=== PATIENT | female | born 1985 | race Caucasian/White ===

== ENCOUNTER 2019-12-06 16:51 | Emergency (ER) | payer OTHER, BC, SELFPAY ==
[2019-12-06 17:05] VITALS: BP 131/67; PULSE 76; RESP 16; TEMP 37; O2SAT 100
--- NOTE | 2019-12-06 18:15 | PC.NURSE ---
moon kwan at bedside with isabel velazquez, going over pain and plan for d/c. pt refusing crutches, moon kwan aware, pt states she has walker at him which has been okayed by the edp.
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
--- NOTE | 2019-12-06 19:01 | PC.NURSE ---
Vision Test: Patient usually wears glasses but did not currently have them on her nor did she have contacts in. Patient's left eye was 20/70 (line 3) and her right was 20/40 (line 5).
[2019-12-06 19:13] VITALS: BP 110/75; PULSE 78; RESP 16; O2SAT 100
== END 2019-12-06 19:13 | disposition home or self-care (01) ==
PROVIDERS: Emergency Provider Emergency Medicine; PCP Family Medicine
DX: S05.02XA Injury of conjunctiva and corneal abrasion without foreign body, left eye, initial encounter (principal); W51.XXXA Accidental striking against or bumped into by another person, initial encounter
CPT/HCPCS: 99283; A9270

== ENCOUNTER 2020-01-07 02:05 | Outpatient (CLI) | payer BC, OTHER, SELFPAY ==
[2020-01-07 16:34] LABS: SARS-CoV-2 RNA PCR Negative
== END 2020-01-07 02:06 | disposition home or self-care (01) ==
LOC: ANHCOVIDDT 02:05
PROVIDERS: PCP Family Medicine; Visit Provider Internal Medicine Gastroenterology
DX: Z01.818 Encounter for other preprocedural examination (principal); Z20.828 Contact with and (suspected) exposure to other viral communicable diseases
CPT/HCPCS: 87635; C9803; U0003

== ENCOUNTER 2020-01-08 00:45 | Day surgery (SDC) | payer BC, OTHER, SELFPAY ==
[2019-12-31 11:52] VITALS: BMI 34.5
[2020-01-08 10:31] VITALS: BP 135/79; PULSE 68; RESP 16; TEMP 36.6; O2SAT 100
[2020-01-08] MEDS: LACTATED RINGERS 1,000 ML 150 ML IV CONT (10:40)
--- NOTE | 2020-01-08 10:55 | WPDANESEPPF ---
Anes - Initial Pre Proc Eval Procedure: Operation Date: 01/08/20 12:00 Proposed Procedures p Colonoscopy - Chad Humphreys MD Date/Time: 01/08/20 10:55 Surgeon: Chad Humphreys MD Pre Op Diagnosis: diarrhea Patient Data Age: 34 Gender: F Height: 5 ft 7 in Weight: 97.3 kg Last Vital Signs Temp 97.8 F 01/08/20 10:31 Pulse 68 01/08/20 10:31 Resp 16 01/08/20 10:31 BP 135/79 01/08/20 10:31 Pulse Ox 100 01/08/20 10:31 Allergies Allergy/AdvReac Type Severity Reaction Status Date / Time Penicillins Allergy Mild Rash Verified 01/08/20 10:30 Home Medications Medication Instructions Recorded Confirmed Type multivitamin 1 tablet PO DAILY 03/19/19 12/31/19 History Patient hx anesthesia problems: none Family hx anesthesia problems: none PMFSH Past Medical History Medical History (Updated 01/08/20 @ 10:56 by Archie Diaz MD) GERD with esophagitis Ovarian cyst Family History Family History (Updated 02/23/18 @ 13:32 by DOCTOR UNKNOWN) Father Diabetes mellitus Other Family history of allergic disorder Family history of cardiovascular disease Family history of hypercholesterolemia Hypertension Malignant neoplasm of prostate Social History Social History Smoking status: Never smoker Alcohol intake: current Drinks per week: 10 Substance use: never Substance use type: does not use Living arrangements: with family Gender identity (if verbalized by the patient): Female Spiritual care concerns: No Anes - Eval Final PreProcedure Day of Procedure 01/08/20 10:55 Patient weight: overweight Heart: regular rate and rhythm Lungs: clear to auscultation Airway: Mallampati scale class II Neurological: alert and oriented Last oral intake: >/= 8 hours ASA classification: II Emergent: no Anesthetic plan: proceed Anesthesia type and monitoring: general GIVS and standard monitoring Informed Consent: The patient's anesthetic plan and its attendant risks and benefits were discussed with the patient/family/POA. Questions were solicited and answers provided to the satisfaction of the patient/family/POA.
--- NOTE | 2020-01-08 11:07 | WPDHPUPDATE1 ---
History and Physical Update Update Date/Time: 01/08/20 11:07 History and Physical has been reviewed, including an updated exam of the patient. There are NO changes in the patient's condition. Risks, benefits, and alternatives have been discussed and questions answered. Patient agrees to proceed with procedure.
[2020-01-08 11:28] VITALS: BP 107/54; PULSE 72; RESP 18; O2SAT 100
[2020-01-08 11:38] VITALS: BP 120/62; PULSE 68; RESP 17; O2SAT 100
[2020-01-08 11:48] VITALS: BP 107/79; PULSE 74; RESP 18; O2SAT 100
== END 2020-01-08 12:00 | disposition home or self-care (01) ==
PROVIDERS: PCP Family Medicine; Visit Provider Internal Medicine Gastroenterology
PROC: 0DJD8ZZ Inspection of Lower Intestinal Tract, Via Natural or Artificial Opening Endoscopic (ICD-10-PCS; CPT 45378; principal; 2020-01-08 12:00)
DX: R19.7 Diarrhea, unspecified (principal)
CPT/HCPCS: 45380; 88305; J2704; J7120

== ENCOUNTER → 2020-05-31 01:09 | Outpatient (CLI) | payer BC, OTHER, SELFPAY ==
[2020-05-31 19:49] LABS: SARS-CoV-2 RNA PCR Negative
== END ==
PROVIDERS: PCP Family Medicine; Visit Provider Surgery
DX: Z01.812 Encounter for preprocedural laboratory examination (principal); Z20.822 Contact with and (suspected) exposure to COVID-19
CPT/HCPCS: C9803; U0003; U0005

== ENCOUNTER 2020-06-03 01:10 | Day surgery (SDC) | payer BC, OTHER, SELFPAY ==
[2020-05-30 15:59] VITALS: BMI 35.2
--- NOTE | 2020-06-02 11:09 | WPDANESEPPF ---
Anes - Initial Pre Proc Eval Procedure: Operation Date: 06/03/20 10:00 Proposed Procedures p Laparoscopic Ventral Hernia Repair With Mesh, Davinci Assisted - Panda Sutherland DO Date/Time: 06/02/20 11:09 Surgeon: Panda Sutherland DO Pre Op Diagnosis: Ventral Hernia Patient Data Age: 34 Gender: F Height: 1.7 m Weight: 102.1 kg Allergies Allergy/AdvReac Type Severity Reaction Status Date / Time Penicillins Allergy Mild Rash Verified 05/28/20 13:39 Home Medications Medication Instructions Recorded Confirmed Type multivitamin 1 tablet PO DAILY 03/19/19 05/30/20 History Patient hx anesthesia problems: post op nausea/vomiting Family hx anesthesia problems: none [facility] Past Medical History Medical History (Updated 06/02/20 @ 11:11 by Umberto Soriano DO) BMI 35.0-35.9,adult GERD with esophagitis Ovarian cyst PONV (postoperative nausea and vomiting) Surgical History Surgical History (Updated 06/02/20 @ 11:11 by Umberto Soriano DO) History of delivery x3 History of colonoscopy History of removal of ovarian cyst History of tubal ligation Family History Family History Father Diabetes mellitus Grandparent Kidney disease Other Family history of allergic disorder Family history of cardiovascular disease Family history of hypercholesterolemia Hypertension Malignant neoplasm of prostate Social History Social History Smoking status: Never smoker Alcohol intake: current Drinks per week: 10 Substance use: never Substance use type: does not use Living arrangements: with family Additional occupation/education comments: Teacher Gender identity (if verbalized by the patient): Female Spiritual care concerns: No Anes - Eval Final PreProcedure Day of Procedure 06/02/20 11:09 Patient weight: obese Heart: regular rate and rhythm Lungs: clear to auscultation and normal air movement Airway: Mallampati scale class II Neurological: alert and oriented Last oral intake: >/= 8 hours ASA classification: II Emergent: no Anesthetic plan: proceed Anesthesia type and monitoring: general ETT and standard monitoring Informed Consent: The patient's anesthetic plan and its attendant risks and benefits were discussed with the patient/family/POA. Questions were solicited and answers provided to the satisfaction of the patient/family/POA.
[2020-06-03] VITALS (9 sets, daily range): BP systolic 104–139; BP diastolic 55–80; PULSE 64–89; RESP 12–18; TEMP 36.3–36.7; O2SAT 92–99; BMI 35.6
[2020-06-03] MEDS: ACETAMINOPHEN 500 MG TABLET 1000 MG PO (08:20)
[2020-06-03] MEDS: KETOROLAC 15 MG/ML VIAL (*BKC) IV PUSH (08:20)
[2020-06-03] MEDS: LACTATED RINGERS 1,000 ML 30 ML IV CONT ×2 (08:42→14:03)
[2020-06-03] MEDS: SCOPOLAMINE 1.5 MG PATCH TRANSDERM (08:42)
[2020-06-03] MEDS: FAMOTIDINE 20 MG/2 ML VIAL IV PUSH (08:42)
--- NOTE | 2020-06-03 10:26 | SUR.PREOP ---
1015 PT UPDATED ON SURGERY TIME DELAY. DENIES NEEDS AT THIS TIME.
--- NOTE | 2020-06-03 10:27 | PM.IMHP ---
H&P: HPI History of Present Illness Date/Time: 06/03/20 10:27 Chief Complaint: Ventral hernia Narrative: Massiel Weiss is a 34 year old female who presents with a hernia just superior to her umbilicus. She now presents for surgical repair. She reports no significant changes since last seen in the office. Review of Systems Review of Systems: All systems reviewed & are unremarkable except as noted in HPI and below Constitutional: Constitutional: Denies chills, Denies fever(s), Denies headache(s) and Denies weight loss Eyes: Eyes: Denies change in vision ENT: Denies dizziness, Denies headache(s), Denies neck mass and Denies throat swelling Cardiovascular: Cardiovascular: Denies chest pain, Denies lightheadedness and Denies dyspnea Respiratory: Respiratory: Denies cough, Denies dyspnea and Denies wheezing Gastrointestinal: Gastrointestinal: Denies abdominal pain, Denies change in bowel habits, Denies nausea and Denies vomiting Genitourinary: Genitourinary: Denies hematuria and Denies dysuria Musculoskeletal: Musculoskeletal: Reports as per HPI Integumentary/Breasts: Skin/Breast: Reports as per HPI Neurologic: Denies dizziness and Denies headache(s) Allergic/Immunologic: Allergic/Immunologic: Denies throat swelling and Denies wheezing PMF Past Medical History Medical History BMI 35.0-35.9,adult GERD with esophagitis Ovarian cyst PONV (postoperative nausea and vomiting) Surgical History Surgical History History of delivery x3 History of colonoscopy History of removal of ovarian cyst History of tubal ligation Family History Family History Father Diabetes mellitus Grandparent Kidney disease Other Family history of allergic disorder Family history of cardiovascular disease Family history of hypercholesterolemia Hypertension Malignant neoplasm of prostate Social History Social History Smoking status: Never smoker Alcohol intake: current Drinks per week: 10 Substance use: never Substance use type: does not use Living arrangements: with family Additional occupation/education comments: Teacher Gender identity (if verbalized by the patient): Female Spiritual care concerns: No Meds Home Medications and Allergies Home Medications Medication Instructions Recorded Confirmed Type multivitamin 1 tablet PO DAILY 03/19/19 05/30/20 History Allergies Allergy/AdvReac Type Severity Reaction Status Date / Time Penicillins Allergy Mild Rash Verified 05/28/20 13:39 Vital Signs Vital Signs - 24 hr 06/03/20 08:32 Temperature 36.7 C Pulse Rate 78 Respiratory Rate 14 Blood Pressure 139/80 Pulse Oximetry 99 Exam Const: General: no acute distress and alert Orientation/consciousness: patient oriented x3 HENMT: Head: normocephalic and atraumatic Ears: hearing grossly normal bilaterally General nose exam: Normal nares present Mouth: Yes Normal oral and palatal mucosa present Eyes: Periorbital: periorbital findings normal Sclera: sclerae normal EOM: EOMs intact bilaterally Neck: Neck: normal visual inspection, no lymphadenopathy and trachea midline Chest: Chest palpation & inspection: normal inspection of the chest Resp: Effort & Inspection: normal respiratory effort Auscultation: clear to auscultation bilaterally Cardio: Jugular venous distension: no JVD Rate: regular rate Rhythm: regular rhythm Heart sounds: S1 normal heart sound present and S2 normal heart sound present Peripheral pulses: Peripheral pulses 2+ throughout GI: Inspection: normal to inspection GI Palp: Yes Soft to palpation, No Tenderness to palpation present (GI), No Guarding due to palpation present (GI), Yes Hernia present (1-2 cm hernia just superior
--- NOTE | 2020-06-03 10:29 | WPDHPUPDATE1 ---
History and Physical Update Update Date/Time: 06/03/20 10:29 History and Physical has been reviewed, including an updated exam of the patient. There are NO changes in the patient's condition. Risks, benefits, and alternatives have been discussed and questions answered. Patient agrees to proceed with procedure.
[2020-06-03] MEDS: CLINDAMYCIN 900 MG/D5W 50 ML 900 MG/50 ML PIGGYBACK 50 MG IVPB (11:11)
--- NOTE | 2020-06-03 12:06 | SUR.OPER ---
LEFT INDEX FINGER SILVER RING WITH CLEAR STONE/BAND WITH SMALL CLEAR STONES TAPPED WITH PLASTIC TAPE SEMI CIRCUMFERENTIAL. MAYURI SIGNED IN PRE OP AND DR WOLFF AWARE.
--- NOTE | 2020-06-03 13:20 | SUR.OPER ---
SYMBOTEX LOT [id number], EXP 06-15-2014. ABDOMINAL MESH
--- NOTE | 2020-06-03 13:44 | PM.PROC ---
Procedure Note - Detailed Date of procedure: 06/03/20 Pre-op diagnosis: Ventral Hernia Post-op diagnosis: other (Incarcerated incisional and umbilical hernia) Procedure performed: Laparoscopic incarcerated incisional hernia repair with Symbotex mesh, da Saran assisted Description of procedure: Procedure as well as risks, benefits, and alternatives were discussed with the patient. Written consent was obtained and placed in chart prior to procedure. Patient was brought back to surgical suite. She was placed supine on operating table. Time-out was done to confirm patient and procedure. She was then intubated by the anesthesia department. A bump was placed under left hip, and the bed was flexed slightly to extend the space between her costal margin and iliac crest. Her abdomen was prepped and draped in sterile fashion using chlorhexidine prep. A 5 millimeter incision was made in the left upper quadrant, and a 5 millimeter Optiview trocar was advanced through the abdominal layers under direct visualization. Once inside the abdominal cavity, carbon dioxide insufflation was used to create a pneumoperitoneum. Her abdomen was inspected. An 8 millimeter incision was made in the left lower quadrant, and an 8 millimeter robotic trocar was placed under direct visualization. Another 8 millimeter incision was made in the left lateral abdomen, and an 8 millimeter robotic trocar was placed under direct visualization. Exparel was infiltrated along the lateral abdominal yousif to perform a transversus abdominis plane block bilaterally. The 5 millimeter port was removed, the incision was extended to 12 millimeters, and a 12 millimeter air seal port was placed under direct visualization. A Hunter-Crow cone was also used to place an 0-Vicryl simple interrupted suture at this trocar site. The robotic arms were brought up to the patient's bedside and secured to the ports. The camera and instruments were inserted, and I then moved over to the robotic console and took control of the camera and instruments. After careful thorough inspection of the abdominal cavity, I began my dissection at the hernia. She was found to have an incisional hernia in the lower midline about 5 cm inferior to the umbilicus that was incarcerated with omentum. The omentum was reduced and the hernia defect was measured. The incisional hernia measured 6 cm vertically by 2 cm transversely. She also had a 1 cm umbilical hernia. The preperitoneal fat and hernia sac was dissected free both hernias. This was placed in the Endo-Catch bag to remove at the end of the case. I then measured the hernia size. The hernia measured 6 cm x 2 cm spaced 5 cm below the umbilicus and the umbilical hernia measured 1 cm. The fascia of the incisional hernia was closed using an 0-Stratafix running suture in a vertical fashion. I then also closed the umbilical hernia defect using 0 Ethibond [id number] suture. A total of 2 sutures were placed vertically to approximate this fascia. The total distance from the inferior edge of the incisional hernia to the superior edge of the umbilical hernia measured 12 cm. A 20 cm x 15 cm Symbotex mesh was then placed within the abdominal cavity. This was oriented vertically with the mesh centered on the hernia defects. The mesh was then secured around the perimeter using 2 0 V lock running absorbable suture. The repair was inspected, and one final inspection was made around the abdominal cavity. The robotic instruments were then removed, and the robotic arms were disengaged from the trocars. The ports were then removed under direct visualization, the camera was removed, and the pneumoperitoneum was released. The 0 Vicryl transfascial suture was tied down. The skin of the incisions was then approximated using 4-0 Monocryl subcuticular suture. Exofin glue was then applied on top. The patient was then awakened from anesthesia, extubated, and transferred to recovery. Implants: Symbotex 20
--- NOTE | 2020-06-03 14:22 | SUR.PHASEI ---
[id number] sbar faxed floor notified
[2020-06-03] MEDS: fentaNYL CITRATE INJ (*CRX) 100 MCG/2 ML VIAL 25 MCG IV PUSH ×3 (15:07→15:50)
[2020-06-03] MEDS: oxyCODONE HCL (*CRX) 5 MG TAB IR PO (15:07)
[2020-06-03] MEDS: ONDANSETRON INJ 4 MG/2 ML VIAL IV PUSH (15:07)
== END 2020-06-03 16:45 | disposition home or self-care (01) ==
PROVIDERS: PCP Family Medicine; Visit Provider Surgery
PROC: (CPT 49655; principal; 2020-06-03 10:00)
DX: K43.0 Incisional hernia with obstruction, without gangrene (principal); K42.9 Umbilical hernia without obstruction or gangrene; E66.9 Obesity, unspecified; Z68.35 Body mass index [BMI] 35.0-35.9, adult
CPT/HCPCS: 49655; S2900; 36415; 86850; 86900; 86901; 88300; A9270; C1781; C9290; J0330; J1100; J1200; J1885; J2250; J2370; J2405; J2704; J2710; J3010; J7120

== ENCOUNTER → 2020-06-25 16:39 | Outpatient (CLI) | payer BC, OTHER, SELFPAY ==
--- NOTE | ~2020-06-25 | XR_ITS ---
EXAMINATION: XR chest 2V DATE: 06/25/2020 16:48 INDICATION: Cough. TECHNIQUE: Frontal and lateral views of the chest were obtained. COMPARISON: Chest 2 views 02/12/2016 FINDINGS: The chest demonstrates clear lungs without pneumonia, pleural effusion, or pneumothorax. Th e heart size is normal. IMPRESSION: 1. No acute cardiopulmonary disease. Reviewed, dictated and finalized at location A. ICATION ASSISTANT
== END ==
PROVIDERS: PCP Physician Assistant Medical; Visit Provider Physician Assistant Medical
DX: R05 Cough (principal)
CPT/HCPCS: 71046

== ENCOUNTER 2020-10-31 12:33 | Emergency (ER) | payer BC, OTHER, SELFPAY ==
--- NOTE | ~2020-10-31 | XR_ITS ---
EXAMINATION: XR chest 2V EXAM DATE: 10/31/2020 12:49 INDICATION: Chest pain. TECHNIQUE: Frontal and lateral projections of the chest obtained and reviewed. Comparison is made to prior examination from 06/25/2020. FINDINGS: The lungs are clear. There are no pleural effusions. The cardiomediastinal silhouette is within normal limits. There is no pneumothorax suspected. The bones and soft tissues are unremarkab le. There is no significant interval change. IMPRESSION: No acute cardiopulmonary findings. Reviewed, dictated and finalized at location A.
[2020-10-31 12:38] VITALS: BP 144/83; PULSE 85; RESP 16; TEMP 36.6; O2SAT 99
--- NOTE | 2020-10-31 12:38 | ECG_ITS ---
Measurements Intervals [place] Rate: 77 P: 30 DC: 176 QRS: 13 QRSD: 107 T: 23 QT: 413 QTc: 468 Interpretive Statements SINUS RHYTHM BORDERLINE T WAVE ABNORMALITY- INFERIOR LEADS BASELINE ARTIFACT- I, II, III, AVR, AVL, AVF, V2-V6 BORDERLINE ECG Electronically Signed On 10-31-2020 13:00:16 CDT by Michael Joya D.O.
[2020-10-31 12:43] VITALS: PULSE 74
[2020-10-31 12:54] LABS: Basophils Percent Auto 0.3 % (0.2-1.2); Eosinophils Absolute Auto 0.1 K/mm3 (0-0.3); Eosinophils Percent Auto 0.7 % (0-4.4); Hematocrit 35.4 % (37.0-47.0); Hemoglobin 11.1 g/dL (12.0-15.0); Immature Granulocyte Absolute 0.02 K/mm3 (0.00-0.031); Immature Granulocyte Percent A 0.3 % (0-0.5); Lymphocytes Absolute Auto 2.88 K/mm3 (0.9-3.2); Lymphocytes Percent Auto 42.4 % (18.3-44.2); Mean Corpuscular HGB Conc 31.4 g/dl (32-36); Mean Corpuscular Hemoglobin 25.9 pg (26-34); Mean Corpuscular Volume 82.5 fl (80-100); Monocytes Absolute Auto 0.3 K/mm3 (0.1-0.6); Neutrophils Absolute Auto 3.6 K/mm3 (1.3-6.7); Neutrophils Percent Auto 52.3 % (45.5-73.1); Platelet Count Result 244 k/mm3 (150-375); Red Blood Count 4.29 M/mm3 (4.2-5.4); Red Cell Distribution Width 16.9 % (11.5-14.5); White Blood Count 6.8 K/mm3 (4.5-10.0)
[2020-10-31] MEDS: ASPIRIN 81 MG CHEWABLE TABLET 324 MG PO (13:08)
[2020-10-31 13:10] VITALS: BP 92/76; PULSE 80; RESP 20; O2SAT 98
[2020-10-31 13:14] LABS: Anion Gap 11 mmol/L (8-16); Blood Urea Nitrogen 13 mg/dL (7-17); Carbon Dioxide 21 mmol/L (22-30); Chloride 106 mmol/L (98-107); Estimated CRCL calculation 136 ml/min; Estimated Glomerular Filt Rate > 60; Glucose 102 mg/dL (65-105); Potassium 3.9 mmol/L (3.4-5.0); Sodium 138 mmol/L (137-145)
[2020-10-31 13:18] LABS: Alanine Aminotransferase 17 U/L (4-35); Albumin Level 4.3 g/dL (3.5-5.1); Alkaline Phosphatase 49 U/L (38-126); Aspartate Amino Transferase 25 U/L (14-36); Bilirubin,Total 0.3 mg/dL (0.2-1.3); Lipase 95 U/L (23-300)
[2020-10-31 13:26] LABS: Troponin I < 0.012 ng/mL (0.000-0.034)
[2020-10-31 13:27] LABS: D Dimer 0.28 ug/mL (<0.48)
--- NOTE | 2020-10-31 14:57 | ED.CHESTPAIN ---
HPI - Chest Pain General Chief Complaint: Chest Pain Stated Complaint: CP off and on X1 Week Time Seen by Provider: 10/31/20 12:38 Source: patient Mode of arrival: ambulatory Limitations: no limitations History of Present Illness HPI narrative: 34-year-old female Generally in good health Complains of a constant mild discomfort in the upper chest mostly on the right side that has been present for about a week Nothing makes it better or worse She does not have any other associated symptoms with it such as a cough shortness of breath sweats vomiting etc. No risk factors for coronary disease, no OCPs Treated for GERD at one point previously Related Data Home Medications Medication Instructions Recorded Confirmed multivitamin 1 tablet PO DAILY 03/19/19 07/25/20 omeprazole 10/31/20 Allergies Allergy/AdvReac Type Severity Reaction Status Date / Time Penicillins Allergy Mild Rash Verified 10/31/20 12:41 Review of Systems Review of Systems: All systems reviewed & are unremarkable except as noted in HPI and below Constitutional: Constitutional: Reports no additional constitutional complaints, Denies chills, Denies fever(s) and Denies headache(s) Eyes: Eyes: Reports no additional eye complaints and Denies change in vision ENT: Denies headache(s) and Denies sore throat Cardiovascular: Cardiovascular: Reports chest pain and Denies dyspnea Respiratory: Respiratory: Denies cough and Denies dyspnea Gastrointestinal: Gastrointestinal: Denies abdominal pain, Denies diarrhea and Denies vomiting Genitourinary: Genitourinary: Denies urinary frequency and Denies dysuria Musculoskeletal: Musculoskeletal: Denies deformity, Denies arthralgias, Denies joint swelling and Denies numbness Integumentary/Breasts: Skin/Breast: Denies rash and Denies wounds Neurologic: Denies headache(s), Denies focal weakness and Denies numbness Psychiatric: Psychiatric: Reports no additional psychiatric complaints Endocrine: Endocrine: Reports no additional endocrine complaints Hematologic/Lymphatic: Hematologic/Lymphatic: Reports no additional hematologic/lymphatic complaints Allergic/Immunologic: Allergic/Immunologic: Reports no additional allergic/immunologic complaints PMFSH Past Medical History Medical History BMI 35.0-35.9,adult GERD with esophagitis Ovarian cyst PONV (postoperative nausea and vomiting) Surgical History Surgical History History of delivery x3 History of colonoscopy History of incisional hernia repair Laparoscopic incarcerated incisional hernia repair with Symbotex mesh, da Saran assisted History of removal of ovarian cyst History of tubal ligation Family History Family History Father Diabetes mellitus Grandparent Kidney disease Other Family history of allergic disorder Family history of cardiovascular disease Family history of hypercholesterolemia Hypertension Malignant neoplasm of prostate Social History Social History Smoking status: Never smoker Alcohol intake: current Drinks per week: 10 Substance use: never Substance use type: does not use Additional occupation/education comments: Teacher Gender identity (if verbalized by the patient): Female Spiritual care concerns: No Exam Const: General: cooperative and no acute distress Orientation/consciousness: patient oriented x3 (alert) HENMT: Head: normal to inspection, normocephalic and atraumatic Ears: external ears normal General nose exam: no epistaxis Eyes: Conjunctivae: conjunctivae normal EOM: EOMs intact bilaterally Neck: Neck: normal visual inspection, supple and no JVD Chest: Chest palpation & inspection: normal inspection of the chest and no tenderness Resp: Effort & Inspect
[2020-10-31 15:26] LABS: INR 1.1; Prothrombin Time 13.7 Seconds (11.1-14.7)
[2020-10-31 15:28] LABS: Partial Thromboplastin Time 33.2 SECONDS (22.3-36.8)
[2020-10-31 15:32] VITALS: BP 123/80; PULSE 66; RESP 18; O2SAT 98
[2020-10-31 15:54] LABS: Troponin I < 0.012 ng/mL (0.000-0.034)
[2020-10-31 16:39] VITALS: BP 125/76; PULSE 72; RESP 18; O2SAT 99
[2020-10-31 17:29] VITALS: BP 122/90; PULSE 72; RESP 18; O2SAT 99
== END 2020-10-31 17:30 | disposition home or self-care (01) ==
PROVIDERS: Emergency Medicine; Emergency Provider Emergency Medicine; PCP Family Medicine
DX: R07.9 Chest pain, unspecified (principal); K21.00 Gastro-esophageal reflux disease with esophagitis, without bleeding; R94.31 Abnormal electrocardiogram [ECG] [EKG]
CPT/HCPCS: 36415; 71046; 80048; 80076; 83690; 84484; 85025; 85380; 85610; 85730; 93005; 99284; A9270

== ENCOUNTER 2021-06-12 06:19 | Emergency (ER) | payer OTHER, SELFPAY ==
--- NOTE | ~2021-06-12 | CT_ITS ---
EXAMINATION: CT soft tissue neck w con DATE: 06/12/2021 08:41 INDICATION: Right jaw swelling. Neck swelling. TECHNIQUE: Computed tomography (CT) of the neck was performed with 75 mL Omnipaque-350 intravenous co ntrast. Automated exposure control and iterative reconstruction technique were employed. The dose-markie gth product was 488.62 mGy-cm. COMPARISON: None FINDINGS: There is mild right submandibular and right high internal jugular chain lymphadenopathy, li ramu reactive. The cervical carotid arteries are normal. There is mild mucosal thickening in the para nasal sinuses. The teeth are unremarkable. IMPRESSION: 1. Mild right submandibular and right high internal jugular chain lymphadenopathy, likely reactive. Reviewed, dictated and finalized at location A. RGROUND MINE SUPERINTENDENT IMPRESSION: 1. Mild right submandibular and right high internal jugular chain lymphadenopat hy, likely reactive.
--- NOTE | ~2021-06-12 | XR_ITS ---
EXAMINATION: XR chest 1V portable DATE: 06/12/2021 07:36 INDICATION: Fever. TECHNIQUE: A single frontal view of the chest was obtained. COMPARISON: Chest 2 views 10/31/2020 FINDINGS: The chest demonstrates clear lungs without pneumonia, pleural effusion, or pneumothorax. Th e heart size is normal. IMPRESSION: 1. No acute cardiopulmonary disease. Reviewed, dictated and finalized at location A. REPAIRER
[2021-06-12 06:24] VITALS: BP 147/94; PULSE 111; RESP 16; TEMP 37.4; O2SAT 100
[2021-06-12 06:58] LABS: Basophils Percent Auto 0.3 % (0.2-1.2); Eosinophils Percent Auto 0.4 % (0-4.4); Hematocrit 39.7 % (37.0-47.0); Hemoglobin 12.6 g/dL (12.0-15.0); Immature Granulocyte Absolute 0.02 K/mm3 (0.00-0.031); Immature Granulocyte Percent A 0.3 % (0-0.5); Lymphocytes Absolute Auto 1.61 K/mm3 (0.9-3.2); Lymphocytes Percent Auto 22.7 % (18.3-44.2); Mean Corpuscular HGB Conc 31.7 g/dl (32-36); Mean Corpuscular Volume 81.9 fl (80-100); Mean Platelet Volume 9.8 fl (7.4-10.4); Monocytes Absolute Auto 0.5 K/mm3 (0.1-0.6); Monocytes Percent Auto 7.2 % (2.6-8.5); Neutrophils Absolute Auto 4.9 K/mm3 (1.3-6.7); Neutrophils Percent Auto 69.1 % (45.5-73.1); Platelet Count Result 242 k/mm3 (150-375); Red Blood Count 4.85 M/mm3 (4.2-5.4); Red Cell Distribution Width 15.6 % (11.5-14.5); White Blood Count 7.1 K/mm3 (4.5-10.0)
[2021-06-12] MEDS: MORPHINE SULFATE (*CRX) 4 MG/ML INJ IV PUSH (07:00)
[2021-06-12] MEDS: SODIUM CHLORIDE 0.9% IV 1,000 ML 999 ML IV CONT (07:00)
[2021-06-12 07:10] LABS: Lactic Acid Reflex 1.4 mmol/L (0.7-2.1)
[2021-06-12 07:17] LABS: Alanine Aminotransferase 25 U/L (4-35); Albumin Level 4.6 g/dL (3.5-5.1); Alkaline Phosphatase 65 U/L (38-126); Anion Gap 8 mmol/L (8-16); Aspartate Amino Transferase 23 U/L (14-36); Bilirubin,Total 0.3 mg/dL (0.2-1.3); Blood Urea Nitrogen 13 mg/dL (7-17); Calcium 8.6 mg/dL (8.4-10.2); Carbon Dioxide 24 mmol/L (22-30); Chloride 102 mmol/L (98-107); Estimated CRCL calculation 121 ml/min; Estimated Glomerular Filt Rate > 60; Glucose 168 mg/dL (65-110); Potassium 4.2 mmol/L (3.4-5.0); Sodium 134 mmol/L (137-145)
--- NOTE | 2021-06-12 07:34 | ED.DENTAL ---
HPI - Dental/Oral General Chief complaint: Dental/Oral Stated complaint: infected wisdom tooth Time Seen by Provider: 06/12/21 07:00 Source: patient and RN notes reviewed Mode of arrival: ambulatory Limitations: no limitations History of Present Illness HPI Narrative: This is a 34 year old female who presents for evaluation right gum and jaw swelling. Patient reports she woke up with right tooth and jaw pain on Tuesday morning. Her jaw also felt swollen at that time so she was evaluated by her dentist Tuesday afternoon. She was told she had an infection and she was started on clindamycin 3 times a day. She states she had a fever yesterday of 102 F. She took Tylenol sometime between midnight and 2 am this morning. She reports she was told to come to ER if she developed worsening pain or fever. She was having right jaw and neck swelling with pain this morning, but it has resolved after she was given morphine in ER. She reports mild cough with breathing. She does not have nausea, vomiting or diarrhea. She also denies chest pain or abdominal pain. Related Data Home Medications Medication Instructions Recorded Confirmed clindamycin HCl 300 mg PO TID 06/12/21 06/12/21 Allergies Allergy/AdvReac Type Severity Reaction Status Date / Time Penicillins Allergy Mild Rash Verified 06/12/21 07:45 Review of Systems Review of Systems: All systems reviewed & are unremarkable except as noted in HPI and below PMFSH Past Medical History Medical History BMI 35.0-35.9,adult GERD with esophagitis Ovarian cyst PONV (postoperative nausea and vomiting) Surgical History Surgical History History of delivery x3 History of colonoscopy History of incisional hernia repair Laparoscopic incarcerated incisional hernia repair with Symbotex mesh, da Saran assisted History of removal of ovarian cyst History of tubal ligation Family History Family History Father Diabetes mellitus Grandparent Kidney disease Other Family history of allergic disorder Family history of cardiovascular disease Family history of hypercholesterolemia Hypertension Malignant neoplasm of prostate Social History Social History Alcohol intake: current Drinks per week: 10 Substance use: never Substance use type: does not use Additional occupation/education comments: Teacher Gender identity (if verbalized by the patient): Female Spiritual care concerns: No Exam Const: General: no acute distress and alert Orientation/consciousness: patient oriented x3 HENMT: Head: normocephalic and atraumatic Face and sinus: normal facial exam, sinuses nontender and face symmetric Mouth: Yes lip normal, Yes tongue normal, Yes moist mucous membranes, No trismus and No restricted motion Teeth and gingiva: fair dentition and other (right gum swelling, no fluctuance, floor of mouth is soft) Throat: posterior oropharynx normal, tonsils normal and uvula midline Eyes: Pupils: Equal, round and reactive pupils present EOM: EOMs intact bilaterally Neck: Neck: lymphadenopathy (right submandibular) Resp: Effort & Inspection: normal respiratory effort and no retractions Auscultation: clear to auscultation bilaterally Cardio: Rate: regular rate Rhythm: regular rhythm Heart sounds: no murmurs GI: GI Palp: Yes Soft to palpation, No Tenderness to palpation present (GI) and No Guarding due to palpation present (GI) Auscultation: normal bowel sounds Neuro: General: patient oriented x3, moves all extremities and CN's II-XI intact bilaterally Psych: Mental Status: mental status grossly normal Affect: normal affect Course Reevaluation(s) Reevaluation #1: I have discussed with patient her pain and swelling is due to lymph no
[2021-06-12 07:42] LABS: Add Urine Microscopic? NO; Appearance Urine Clear (Clear); Bilirubin Urine Negative (Negative); Blood Urine Negative (Negative); Color Urine Yellow (Yellow); Glucose Urine UA Negative (Negative); Ketones Urine Negative (Negative); Leukocyte Esterase Ur Negative LEU/UL (Negative); Nitrate Urine Negative (Negative); Protein Urine Negative (Negative); Specific Grav Ur 1.021 (1.001-1.035); Urobilinogen Urine Negative mg/dL (<2.0)
[2021-06-12] MEDS: CLINDAMYCIN 900 MG/D5W 50 ML 900 MG/50 ML PIGGYBACK 50 MG IVPB (07:48)
[2021-06-12 07:59] LABS: Pregnancy On Board Control Positive; Urine Pregnancy Test Negative
[2021-06-12 08:56] VITALS: BP 119/68; PULSE 90; RESP 18; TEMP 37.1; O2SAT 98
== END 2021-06-12 09:45 | disposition home or self-care (01) ==
PROVIDERS: Emergency Medicine; Emergency Provider General Practice; PCP Family Medicine
DX: K04.7 Periapical abscess without sinus (principal); R59.9 Enlarged lymph nodes, unspecified; K21.00 Gastro-esophageal reflux disease with esophagitis, without bleeding
CPT/HCPCS: 36415; 70491; 71045; 80053; 81003; 81025; 83605; 85025; 96365; 96367; 96375; 99284; J0131; J2270; J7030; Q9967

== ENCOUNTER 2023-03-28 07:00 | Outpatient (NON) | payer OTHER, SELFPAY | END 2023-03-28 07:01 | disposition home or self-care (01) | PROVIDERS: PCP Family Medicine; Visit Provider Internal Medicine Gastroenterology | DX: N92.1 Excessive and frequent menstruation with irregular cycle (principal) | CPT/HCPCS: 88305 ==

== ENCOUNTER 2023-03-28 09:31 | Day surgery (SDC) | payer OTHER, SELFPAY ==
[2023-03-23 15:28] VITALS: BMI 38.8
[2023-03-25 13:42] VITALS: BMI 37.6
[2023-03-28 11:10] VITALS: BP 137/87; PULSE 90; RESP 20; TEMP 37.3; O2SAT 100
[2023-03-28] MEDS: LACTATED RINGERS 1,000 ML 30 ML IV CONT (11:23)
[2023-03-28] MEDS: ACETAMINOPHEN 500 MG TABLET 1000 MG PO (11:26)
--- NOTE | 2023-03-28 11:34 | PM.IMHP ---
H&P: HPI History of Present Illness Date/Time: 03/28/23 11:34 Chief Complaint: Heavy bleeding Narrative: 37 y/o who has heavy menses with full flow lasting 7-10 days each. Ultrasound shows a likely endometrial mass measuring 1.7 cm in greatest dimension. Review of Systems Review of Systems: All systems reviewed & are unremarkable except as noted in HPI and below PMFSH Past Medical History Medical History BMI 35.0-35.9,adult GERD with esophagitis Ovarian cyst PONV (postoperative nausea and vomiting) Surgical History Surgical History History of delivery x3 History of colonoscopy History of incisional hernia repair Laparoscopic incarcerated incisional hernia repair with Symbotex mesh, da Saran assisted History of removal of ovarian cyst History of tubal ligation Family History Family History Father Diabetes mellitus Grandparent Kidney disease Other Family history of allergic disorder Family history of cardiovascular disease Family history of hypercholesterolemia Hypertension Malignant neoplasm of prostate Social History Social History Smoking status: Never smoker Second hand tobacco smoke exposure: No Alcohol intake: current Drinks per week: 5 Substance use: never Substance use type: does not use Lack of Transportation: No Lack of Food: Never True Current Housing: I Have Housing Concerned About Future Housing: No Difficulty Paying Gas/Electric Bills: No Difficulty Paying for Meds: No Currently Unemployed: No Education: Master's Degree or Higher Difficulty w/ Childcare or Family Care: No Living arrangements: with family Occupation/Education: occupation Additional occupation/education comments: Teacher Gender identity (if verbalized by the patient): Female Spiritual care concerns: No Meds Home Medications and Allergies Home Medications Medication Instructions Recorded Confirmed Type ferrous sulfate 325 mg (65 mg 325 mg PO DAILY #30 tabs 09/21/22 03/25/23 Rx iron) tablet Allergies Allergy/AdvReac Type Severity Reaction Status Date / Time Penicillins Allergy Unknown Rash Verified 03/28/23 11:19 Vital Signs Vital Signs - 24 hr 03/28/23 11:10 Temperature 37.3 C Pulse Rate 90 Respiratory Rate 20 Blood Pressure 137/87 Pulse Oximetry 100 Oxygen Delivery Room Air Exam Const: Orientation/consciousness: patient oriented x3 Other: Well-developed, well-nourished female in no acute distress. Neck: Thyroid: thyroid normal Lymphatic: no lymphadenopathy noted (in neck, axilla or inguinal nodes) Resp: Effort & Inspection: normal respiratory effort Auscultation: clear to auscultation bilaterally Cardio: Rate: regular rate Rhythm: regular rhythm Heart sounds: S1 normal heart sound present and S2 normal heart sound present GI: Other: ABD: Soft, nontender, nondistended. No guarding or rebound tenderness. No hepatosplenomegaly. : General: Yes no CVA tenderness Other: External genitalia: normal female hair distribution, without lesion. Urethral meatus: no lesion, non prolapsed. Bladder: no mass, nontender Vagina: well-estrogenized, without lesion or discharge. No cystocele or rectocele. Cervix: no lesion or discharge. Uterus: small, anteverted, freely mobile, nontender Adnexa: no mass or tenderness. Anus/perineum: no lesions, nontender Back/Spine/Pelvis: Back: no CVA tenderness Skin: General skin exam: normal color and no rashes or lesions noted Neuro: General: patient oriented x3 Extrem: Other: Extremities: nontender with no edema Psych: Mental Status: mental status grossly normal Affect: normal affect Assessment and Plan Assessment and plan (1) [place]
--- NOTE | 2023-03-28 11:57 | WPDHPUPDATE1 ---
History and Physical Update Update Date/Time: 03/28/23 11:57 History and Physical has been reviewed, including an updated exam of the patient. There are NO changes in the patient's condition. Risks, benefits, and alternatives have been discussed and questions answered. Patient agrees to proceed with procedure.
--- NOTE | 2023-03-28 12:04 | WPDANESEPPF ---
Anes - Initial Pre Proc Eval Procedure: Operation Date: 03/28/23 12:00 Proposed Procedures p Hysteroscopy with Dilation and Curettage, Polypectomy - Anshu Cooper MD Date/Time: 03/28/23 12:04 Surgeon: Anshu Cooper MD Pre Op Diagnosis: Thicken Endometrial Lining, Irregular Heavy Menses Patient Data Age: 37 Gender: F Height: 1.7 m Weight: 111.6 kg Last Vital Signs Temp 37.3 C 03/28/23 11:10 Pulse 90 03/28/23 11:10 Resp 20 03/28/23 11:10 BP 137/87 03/28/23 11:10 Pulse Ox 100 03/28/23 11:10 O2 Del Method Room Air 03/28/23 11:10 Allergies Allergy/AdvReac Type Severity Reaction Status Date / Time Penicillins Allergy Unknown Rash Verified 03/28/23 11:19 Home Medications Medication Instructions Recorded Confirmed Type ferrous sulfate 325 mg (65 mg 325 mg PO DAILY #30 tabs 09/21/22 03/25/23 Rx iron) tablet Patient hx anesthesia problems: none Family hx anesthesia problems: none Results Review: All pre-operative results and documents have been reviewed as part of the pre-operative evaluation. [facility] Past Medical History Medical History BMI 35.0-35.9,adult GERD with esophagitis Ovarian cyst PONV (postoperative nausea and vomiting) Surgical History Surgical History History of delivery x3 History of colonoscopy History of incisional hernia repair Laparoscopic incarcerated incisional hernia repair with Symbotex mesh, da Saran assisted History of removal of ovarian cyst History of tubal ligation Family History Family History Father Diabetes mellitus Grandparent Kidney disease Other Family history of allergic disorder Family history of cardiovascular disease Family history of hypercholesterolemia Hypertension Malignant neoplasm of prostate Social History Social History Smoking status: Never smoker Second hand tobacco smoke exposure: No Alcohol intake: current Drinks per week: 5 Substance use: never Substance use type: does not use Lack of Transportation: No Lack of Food: Never True Current Housing: I Have Housing Concerned About Future Housing: No Difficulty Paying Gas/Electric Bills: No Difficulty Paying for Meds: No Currently Unemployed: No Education: Master's Degree or Higher Difficulty w/ Childcare or Family Care: No Living arrangements: with family Occupation/Education: occupation Additional occupation/education comments: Teacher Gender identity (if verbalized by the patient): Female Spiritual care concerns: No Anes - Eval Final PreProcedure Day of Procedure 03/28/23 12:04 Patient weight: obese Heart: regular rate and rhythm Lungs: clear to auscultation Airway: Mallampati scale class II Neurological: alert and oriented Last oral intake: >/= 8 hours ASA classification: II Emergent: no Anesthetic plan: proceed Anesthesia type and monitoring: general GIVS and standard monitoring Results Review: All pre-operative results and documents have been reviewed as part of the pre-operative evaluation. Informed Consent: The patient's anesthetic plan and its attendant risks and benefits were discussed with the patient/family/POA. Questions were solicited and answers provided to the satisfaction of the patient/family/POA.
[2023-03-28] MEDS: LIDOCAINE HCL 1% LOCAL INJ 20 ML VIAL 10 ML INFILTRATE (12:28)
--- NOTE | 2023-03-28 12:37 | W.PM.PROC2 ---
Procedure Note - Detailed Date of Procedure 03/28/23 Pre-op Diagnosis Menometrorrhagia Abnormal pelvic ultrasound Post-op Diagnosis Same Procedure Performed Hysterosopy Dilation and sharp curettage Endometrial polypectomy Surgeon Anshu Cooper MD Anesthesia MAC and Local (1% lidocaine) Findings Thick endometrium with suggestion of a polyp Description of Procedure The patient was taken to the operating room where she was prepared and draped in the usual sterile fashion in the dorsal lithotomy position. The bladder was drained with a red rubber catheter. A sterile speculum was placed into the vagina. The anterior lip of the cervix was grasped with single-tooth tenaculum. Ten mL of 1% lidocaine was administered in a paracervical block. The cervix was then gently dilated using Hegar dilators until an 8 mm dilator could be passed. Hysteroscopy was performed using sterile saline as a distention medium. Findings are as noted above. Sharp curettage was then performed, and endometrial curettings were collected on a Telfa pad and passed off to be sent to pathology. Hemostasis was excellent. Sponge, lap, needle and instrument counts were correct. The patient was awakened and taken to the recovery room in stable condition. I was present and scrubbed through the entire procedure. Estimated Blood Loss 5 Drains No Packing No Pathology Yes (Endometrial curettings) Complications None Condition Stable Disposition PACU
[2023-03-28 12:38] VITALS: BP 136/94; PULSE 72; RESP 16; O2SAT 100
--- NOTE | 2023-03-28 12:47 | WPDANESPN ---
Anes - Prog Note Post-Op Date/Time: 03/28/23 12:47 Cardiovascular status: normal Respiratory status: normal Airway patency: baseline Mental status: baseline Post-Op hydration status: normal Vital Signs: Last Vital Signs Temp 37.3 C 03/28/23 11:10 Pulse 72 03/28/23 12:38 Resp 16 03/28/23 12:38 BP 136/94 H 03/28/23 12:38 Pulse Ox 100 03/28/23 12:38 O2 Del Method Room Air 03/28/23 12:38 Pain Score (VAS): 0/10 I/O: Intake & Output 03/27/23 03/28/23 03/28/23 23:59 07:59 15:59 Intake Total 600 Output Total 50 Balance 550 Patient Feedback: Patient satisfied with anesthetic care.
[2023-03-28 12:48] VITALS: BP 133/85; PULSE 74; RESP 16; O2SAT 100
[2023-03-28 12:58] VITALS: BP 142/88; PULSE 62; RESP 15; O2SAT 100
[2023-03-28 13:08] VITALS: PULSE 62; RESP 15; O2SAT 100
[2023-03-28] MEDS: SCOPOLAMINE 1.5 MG PATCH 1 MG TRANSDERM (13:22)
== END 2023-03-28 13:39 | disposition home or self-care (01) ==
PROVIDERS: PCP Family Medicine; Visit Provider Obstetrics & Gynecology
PROC: 0U5B8ZZ Destruction of Endometrium, Via Natural or Artificial Opening Endoscopic (ICD-10-PCS; CPT 58563; principal; 2023-03-28 12:00)
DX: N92.1 Excessive and frequent menstruation with irregular cycle (principal); R93.5 Abnormal findings on diagnostic imaging of other abdominal regions, including retroperitoneum
CPT/HCPCS: 58558

== ENCOUNTER 2023-10-28 09:18 | Emergency (ER) | payer OTHER, SELFPAY ==
--- NOTE | 2023-10-28 09:25 | ED.URI ---
HPI - URI/Sore Throat General Chief Complaint: Upper Respiratory Infection Stated Complaint: strep test Time Seen by Provider: 10/28/23 09:30 Source: patient, RN notes reviewed and old records reviewed Mode of arrival: ambulatory Limitations: no limitations History of Present Illness HPI Narrative: 37-year-old female presents to the [facility] with complaints of a sore throat/ headache that started Tuesday, 4 days, Worse today. No treatment [place] Patient states she just wants to be tested for strep, making sure she does not need an antibiotic because she is going out of town Related Data Home Medications Medication Instructions Recorded Confirmed No Home Medications 04/15/23 10/28/23 Allergies Allergy/AdvReac Type Severity Reaction Status Date / Time Penicillins AdvReac Mild Rash Verified 10/28/23 09:24 Review of Systems Review of Systems: All systems reviewed & are unremarkable except as noted in HPI and below Constitutional: Constitutional: Reports no additional constitutional complaints Eyes: Eyes: Reports no additional eye complaints ENT: Reports as per HPI and Reports sore throat Cardiovascular: Cardiovascular: Reports no additional cardiovascular complaints, Denies chest pain and Denies dyspnea Respiratory: Respiratory: Reports no additional respiratory complaints, Denies chest congestion, Denies cough and Denies dyspnea Gastrointestinal: Gastrointestinal: Reports no additional gastrointestinal complaints, Denies abdominal pain, Denies nausea and Denies vomiting Musculoskeletal: Musculoskeletal: Reports no additional musculoskeletal complaints Integumentary/Breasts: Skin/Breast: Reports system reviewed and no additional complaints, except as docu Neurologic: Reports system reviewed and no additional complaints, except as documented Psychiatric: Psychiatric: Reports no additional psychiatric complaints Allergic/Immunologic: Allergic/Immunologic: Reports no additional allergic/immunologic complaints [facility] Past Medical History Medical History BMI 35.0-35.9,adult GERD with esophagitis Ovarian cyst PONV (postoperative nausea and vomiting) Surgical History Surgical History History of delivery x3 History of colonoscopy History of hysteroscopy History of incisional hernia repair Laparoscopic incarcerated incisional hernia repair with Symbotex mesh, da Saran assisted History of removal of ovarian cyst History of tubal ligation Family History Family History Father Diabetes mellitus Grandparent Kidney disease Other Family history of allergic disorder Family history of cardiovascular disease Family history of hypercholesterolemia Hypertension Malignant neoplasm of prostate Social History Social History Smoking status: Never smoker Second hand tobacco smoke exposure: No Alcohol intake: current Drinks per week: 5 Substance use: never Substance use type: does not use Lack of Transportation: No Lack of Food: Never True Current Housing: I Have Housing Concerned About Future Housing: No Difficulty Paying Gas/Electric Bills: No Difficulty Paying for Meds: No Currently Unemployed: No Education: Master's Degree or Higher Difficulty w/ Childcare or Family Care: No Living arrangements: with family Occupation/Education: occupation Additional occupation/education comments: Teacher Gender identity (if verbalized by the patient): Female Spiritual care concerns: No Comments At the time of my signature, I reviewed and agree with the nursing past medical, surgical, social, and family history. There is no relevant family history pertinent to the patient complaint. Exam Const: General: cooperative, healthy appearing, comfortable, no
[2023-10-28 09:32] VITALS: BP 122/85; PULSE 74; RESP 16; TEMP 36.4; O2SAT 99
[2023-10-28 09:39] LABS: EDSTREPNEGPOS1 Presumptive Negative
== END 2023-10-28 09:38 | disposition home or self-care (01) ==
PROVIDERS: Emergency Provider Nurse Practitioner; PCP Family Medicine
DX: J02.9 Acute pharyngitis, unspecified (principal); K21.00 Gastro-esophageal reflux disease with esophagitis, without bleeding
CPT/HCPCS: 87081; 87880; 99213; G0463

== ENCOUNTER 2025-03-13 01:28 | Day surgery (SDC) | payer OTHER, SELFPAY ==
[2025-03-04 15:17] VITALS: BMI 37.6
--- NOTE | 2025-03-04 15:25 | PC.NURSE ---
[facility] has started construction of its new state of the art ER which will open Spring 2026. With this, we anticipate parking may be a challenge for some our surgical patients and families. Parking spaces are limited but are available for all Surgical, obstetrics, and ER patients sharing this lot. If you arrive and find you are having a hard time finding a parking space, please note that we understand the challenges, please drive around the hospital and park near Hospital Entrance 1. When you enter this entrance, you can ask a volunteer to direct or take you back to the surgical waiting area to check in. We appreciate everyone?s understanding of these expected challenges while we build for your future. Report to the Outpatient Waiting Room, entrance under the green pavilion located off [address], at time _115pm_ on date _[id number]_. Planned Procedure Time: _315pm_.? Time changes happen often and if your time is changed the preop area will call you the afternoon before. - You and your visitor will be asked to self-screen and do not enter if you have any COVID symptoms. Please call surgeon if you need to reschedule. - A mask is optional within the hospital at this time. Patients may have clear liquids (water, carbonated beverages, clear teas, apple juice) until 3 hours prior to surgery with a maximum of 20 ounces. - No food from midnight until time of surgery and no smoking, or chewing tobacco (or any form of nicotine). No chewing gum, candy or mints. Take only the following medications with a SIP of water on the morning of surgery: __None DO NOT STOP ANY OF YOUR OTHER PRESCRIPTION MEDICATIONS PRIOR TO SURGERY EXCEPT THE FOLLOWING Hold all vitamins and supplements for 3 days per anesthesiologist. Medications to discontinue per physician Date to take last dose Please no make-up, nail greek, hairspray, perfume, deodorant, or body powder the day of surgery.? No jewelry (including any body piercings) or valuables the day of surgery, leave them at home.? Please take a shower or bath the night before, or the morning of, surgery with an antibacterial soap.? Wear comfortable, loose fitting clothing.? - Jewelry must be removed prior to entering the operating room.? Rings and piercings that are not removed may be cut off. - The hospital will not accept responsibility for valuables.? - Please leave all valuables, including medications, at home the day of surgery. If you are going home after surgery, a licensed tractor driver teamster must drive you home.? - NO public transportation without another adult if you receive anesthesia. - We recommend that an adult stay with you for 24 hours following discharge. - We also recommend that you do not drive, make important decision, drink alcoholic beverages, or take any drugs that were not prescribed by your health care provider for at least 24 hours after your discharge time. Follow any additional instructions given to you from your surgeon. Telephone instructions given to _Makaylamari__and asked if any additional questions and then verbalized understanding. Patient advised to call surgeon office or pre surgery nurse liaison [phone] if any additional questions.
--- OUTSIDE RECORDS SUMMARY | 2025-03-13 01:31 | XMS_ITS | Clinical Summary ---
Author Organization [facility] Address [address] [place] [address] Care Team Providers Care Order Processing Specialist Name Role Phone Michel Beltran MD Primary Care Provider [phone] Source Comments [facility],non-owned Affiliates and Associated Physician Practices is amultiple site organization consisting of ambulatory clinics and hospital sitesin [place], [place], [place] and [place]. This disclosure is being madepursuant to the Care Everywhere program and may not contain all information available regarding this patient. Last updated 18.[facility] Allergies Active Allergy Reactions Criticality Noted Date Comments Penicillins 09/12/2016 Medications * Be aware that medications may not be up to date on this document. Alwaysverify current medications with the patient. No known medications Active Problems No known active problems Social History Tobacco Use Types Packs/Day Years Used Date Smoking Tobacco: Never Comments Unknown Sex and Gender Information Value Date Recorded Sex Assigned at Not on file Legal Sex Female 11:15 AM CDT Gender Identity Not on file Sexual Orientation Not on file Last Filed Vital Signs Vital Sign Reading Time Taken Comments Blood Pressure 118/74 09/12/2016 2:51 PM CDT Pulse 72 09/12/2016 2:51 PM CDT Temperature 37.2 C (99 F) 09/12/2016 2:51 PM CDT Respiratory Rate 18 09/12/2016 2:51 PM CDT Oxygen Saturation 98% 09/12/2016 2:51 PM CDT Inhaled Oxygen Concentration - - Weight 95.3 kg (210 lb) 09/12/2016 2:51 PM CDT Height 170.2 cm (5' 7) 09/12/2016 2:51 PM CDT Body Mass Index 32.89 09/12/2016 2:51 PM CDT Plan of Treatment Health Maintenance Due Date Last Done Comments LIPID TESTING 1984 MAMMOGRAM 1985 HIV SCREENING 11/29/1999 HEPATITIS C SCREENING 11/24/2002 DTAP/TDAP/TD VACCINES (1 - Tdap) 11/29/2003 HEPATITIS B VACCINE (1 of 3 - 19+ 3-dose series) 11/29/2003 Cervical Cancer Screening 2005 PAP SMEAR 2005 HPV VACCINE (1 - 3-dose SCDM series) 11/29/2011 PAP with HPV 2014 DEPRESSION SCREENING 04/18/2024 COVID-19 VACCINE (1 - 2024-2 6 season) 2024 INFLUENZA VACCINE (#1) 2024 ZOSTER VACCINE (1 of 2) 2034 HIB VACCINE Aged Out No longer eligi ble based on patient's age to complete this topic MENINGOCOCCAL (Group B) VACC INE SHARED DECISION-MAKING Aged Out No longer eligibl e based on patient's age to complete this topic MENINGOCOCCAL GROUPS A/C/Y/W VACCINE Aged Out No longer eligible b ased on patient's age to complete this topic PNEUMOCOCCAL VACCINE Aged Out No long er eligible based on patient's age to complete this topic Insurance [facility] [place] [place] [address] [facility] SELF PAY NO INSURANCE Member Subscriber Plan / Payer (Ef fective for All Dates) Name:Karen Weiss Member ID:Not on file Relation to Subscriber:Not on file Name:KAREN WEISS Subscriber ID:Not on file Address: [facility] [place] [address] Payer ID:Not on file Group ID:Not on file Type:Self Pay Address: [place], [place] Care Teams Order Processing Specialist Relationship Specialty Start Date End Date Michel Beltran MD [address] [place] [id number] [phone] (work) PCP - General Family Medicine 09/12/16
--- NOTE | 2025-03-13 09:38 | PM.IMHP ---
H&P: HPI History of Present Illness Date/Time: 03/13/25 09:38 Chief Complaint: Heavy menses Narrative: 39 y/o who has menses lasting 5-6 days, but then has spotting off and on for another 5-6 days afterward. She has had a tubal ligation. On ultrasound exam there is an echogenic mass in the endometrial cavity measuring 9x7mm. Of note, she had a hysteroscopy with D&C for a benign endometrial polyp in 2022. I have offered her a hysteroscopy with dilation and sharp curettage. Review of Systems Review of Systems: All systems reviewed & are unremarkable except as noted in HPI and below PMFSH Past Medical History Medical History PONV (postoperative nausea and vomiting) BMI 35.0-35.9,adult GERD with esophagitis Ovarian cyst Surgical History Surgical History History of hysteroscopy History of incisional hernia repair Laparoscopic incarcerated incisional hernia repair with Symbotex mesh, da Saran assisted History of tubal ligation History of removal of ovarian cyst History of colonoscopy History of delivery x3 Family History Family History Father Diabetes mellitus Grandparent Kidney disease Other Family history of allergic disorder Family history of cardiovascular disease Family history of hypercholesterolemia Hypertension Malignant neoplasm of prostate Social History Social History Smoking status: Never smoker Second hand tobacco smoke exposure: No Alcohol intake: current Drinks per week: 5 Substance use: current Substance use type: marijuana Other substance usage details: Not very often gummies. Lack of Transportation: No Lack of Food: Never True Current Housing: I Have Housing Concerned About Future Housing: No Difficulty Paying Gas/Electric Bills: No Difficulty Paying for Meds: No Currently Unemployed: No Education: Master's Degree or Higher Difficulty w/ Childcare or Family Care: No Living arrangements: with family Occupation/Education: occupation Additional occupation/education comments: Teacher Gender identity (if verbalized by the patient): Female Spiritual care concerns: No Meds Home Medications and Allergies Home Medications ?Medication ?Instructions ?Recorded ?Confirmed ?Type magnesium 200 mg tablet 200 mg PO DAILY 04/16/24 03/04/25 History multivitamin 1 tablet PO DAILY 04/16/24 03/04/25 History Allergies Allergy/AdvReac Type Severity Reaction Status Date / Time Penicillins AdvReac Mild Rash Verified 03/13/25 09:58 Exam Const: Orientation/consciousness: patient oriented x3 Other: Well-developed, well-nourished female in no acute distress. Neck: Thyroid: thyroid normal Lymphatic: no lymphadenopathy noted (in neck, axilla or inguinal nodes) Resp: Effort & Inspection: normal respiratory effort Auscultation: clear to auscultation bilaterally Cardio: Rate: regular rate Rhythm: regular rhythm Heart sounds: S1 normal heart sound present and S2 normal heart sound present GI: Other: ABD: Soft, nontender, nondistended. No guarding or rebound tenderness. No hepatosplenomegaly. : General: Yes no CVA tenderness Other: External genitalia: normal female hair distribution, without lesion. Urethral meatus: no lesion, non prolapsed. Bladder: no mass, nontender Vagina: well-estrogenized, without lesion or discharge. No cystocele or rectocele. Cervix: no lesion or discharge. Uterus: small, anteverted, freely mobile, nontender Adnexa: no mass or tenderness. Anus/perineum: no lesions, nontender Back/Spine/Pelvis: Back: no CVA tenderness Skin: General skin exam: normal color and no rashes or lesions noted Neuro: General: patient oriented x3 Extrem: Other: Extremities: nontender with no edema Psych: Mental Status: mental status grossly normal Affect: normal affect Assessment and Plan Assessment and plan (1) Menometrorrhagia: Code(s): N92.1 - Excessive and frequent menstruation with irregular cycle Status: Acute Assessment and Plan: A: Menometrorrhagia. P: I have offered hysteroscopy with dilation and sharp curettage. She understands risks of surgery to include risks of anesthesia, risks of pain, infection, bleeding, blood products, thromboembolic phenomena and damage to adjacent structures such as bowel, bladder, ureters, blood vessels and nerves. She understands all these risks and elects to proceed with surgery.
[2025-03-13 13:30] VITALS: BP 129/90; PULSE 78; RESP 16; TEMP 36.3; O2SAT 100
[2025-03-13] MEDS: ACETAMINOPHEN 500 MG TABLET 1000 MG PO (13:30)
--- NOTE | 2025-03-13 13:58 | WPDHPUPDATE1 ---
History and Physical Update Update Date/Time: 03/13/25 13:58 History and Physical has been reviewed, including an updated exam of the patient. There are NO changes in the patient's condition. Risks, benefits, and alternatives have been discussed and questions answered. Patient agrees to proceed with procedure.
[2025-03-13 14:06] LABS: BEDSIDEPREGUCG Negative (Negative)
--- NOTE | 2025-03-13 15:29 | WPDANESEPPF ---
Anes - Initial Pre Proc Eval Procedure: Operation Date: 03/13/25 15:15 Proposed Procedures p Hysteroscopy, Dilation and Curettage, Removal Any Endometrial Lesions as Needed - Anshu Cooper MD Date/Time: 03/13/25 15:29 Surgeon: Anshu Cooper MD Pre Op Diagnosis: menometrorrhagia Patient Data Age: 39 Gender: F Height: 1.7 m Weight: 108 kg Last Vital Signs Temp 36.3 C L 03/13/25 13:30 Pulse 78 03/13/25 13:30 Resp 16 03/13/25 13:30 BP 129/90 03/13/25 13:30 Pulse Ox 100 03/13/25 13:30 O2 Del Method Room Air 03/13/25 13:30 Allergies Allergy/AdvReac Type Severity Reaction Status Date / Time Penicillins AdvReac Mild Rash Verified 03/13/25 09:58 Home Medications ?Medication ?Instructions ?Recorded ?Confirmed ?Type magnesium 200 mg tablet 200 mg PO DAILY 04/16/24 03/04/25 History multivitamin 1 tablet PO DAILY 04/16/24 03/04/25 History hydrocodone 5 mg-acetaminophen 325 1 tablet PO Q6H PRN pain #10 tabs 03/13/25 Rx mg tablet Laboratory Tests 03/13/25 13:30 POC Urine HCG, Qual Negative (Negative) Patient hx anesthesia problems: post op nausea/vomiting Family hx anesthesia problems: none Results Review: All pre-operative results and documents have been reviewed as part of the pre-operative evaluation. [facility] Past Medical History Medical History PONV (postoperative nausea and vomiting) BMI 35.0-35.9,adult GERD with esophagitis Ovarian cyst Surgical History Surgical History History of hysteroscopy History of incisional hernia repair Laparoscopic incarcerated incisional hernia repair with Symbotex mesh, da Saran assisted History of tubal ligation History of removal of ovarian cyst History of colonoscopy History of delivery x3 Family History Family History Father Diabetes mellitus Grandparent Kidney disease Other Family history of allergic disorder Family history of cardiovascular disease Family history of hypercholesterolemia Hypertension Malignant neoplasm of prostate Social History Social History Smoking status: Never smoker Second hand tobacco smoke exposure: No Alcohol intake: current Drinks per week: 5 Substance use: current Substance use type: marijuana Other substance usage details: Not very often gummies. Lack of Transportation: No Lack of Food: Never True Current Housing: I Have Housing Concerned About Future Housing: No Difficulty Paying Gas/Electric Bills: No Difficulty Paying for Meds: No Currently Unemployed: No Education: Master's Degree or Higher Difficulty w/ Childcare or Family Care: No Living arrangements: with family Occupation/Education: occupation Additional occupation/education comments: Teacher Gender identity (if verbalized by the patient): Female Spiritual care concerns: No Anes - Eval Final PreProcedure Day of Procedure 03/13/25 15:29 Patient weight: obese Heart: regular rate and rhythm Lungs: clear to auscultation Airway: Mallampati scale class II Neurological: alert and oriented Last oral intake: >/= 8 hours ASA classification: II Emergent: no Anesthetic plan: proceed Anesthesia type and monitoring: general GIVS and standard monitoring Results Review: All pre-operative results and documents have been reviewed as part of the pre-operative evaluation. Informed Consent: The patient's anesthetic plan and its attendant risks and benefits were discussed with the patient/family/POA. Questions were solicited and answers provided to the satisfaction of the patient/family/POA.
[2025-03-13] MEDS: LIDOCAINE 1% LOCAL INJ 10 ML VIAL INFILTRATE (15:46)
--- NOTE | 2025-03-13 15:52 | S_PTH ---
PATIENT: Massiel Weiss LOC: [facility]#:[id number] AGE/SX: 39/F ROOM: RE03/13/[address]: Anshu Cooper MD : 1985 BED: DIS: 03/13/2025 SPEC #: [id number] RECD: 03/18/25 08:06 STATUS: EYAL RE #: [id number] RADHA: 03/13/25 15:[address]: Anshu Cooper DEPT: [facility] Surgical RECD BY: Zaina Davis ENTERED: 03/18/25 08:06 SP TYPE: Surgical OTHR DR: Michel Beltran MD Tissues: A - Endometrial Curettings Procedures: Hematoxylin and Eosin Stain Gross and Microscopic Level 4
[2025-03-13 16:04] VITALS: BP 137/84; PULSE 77; O2SAT 100
[2025-03-13] MEDS: LACTATED RINGERS 1,000 ML 30 ML IV CONT (16:04)
--- NOTE | 2025-03-13 16:14 | W.PM.PROC2 ---
Procedure Note - Detailed Date of Procedure 03/13/25 Pre-op Diagnosis Menometrorrhagia Endometrial polyp Post-op Diagnosis Same Procedure Performed Hysteroscopy Dilation and sharp curettage Endometrial polypectomy Surgeon Anshu Cooper MD Anesthesia MAC and Local (1% lidocaine) Findings Small endometrial polyp. Otherwise, the endometrial cavity was unremarkable. Both tubal ostia were seen. Description of Procedure The patient was taken to the operating room where she was prepared and draped in the usual sterile fashion in the dorsal lithotomy position. The bladder was drained with a red rubber catheter. A sterile speculum was placed into the vagina. The anterior lip of the cervix was grasped with single-tooth tenaculum. Ten mL of 1% lidocaine was administered in a paracervical block. The cervix was then gently dilated using Hegar dilators until a 7 mm dilator could be passed. Hysteroscopy was performed using sterile saline as a distention medium. Findings are as noted above. The Aveta hysteroscopic resector was advanced and the endometrial polyp was resected completely. Sharp curettage was then performed, and endometrial curettings were collected on a Telfa pad and passed off to be sent to pathology. Hemostasis was excellent. Sponge, lap, needle and instrument counts were correct. The patient was awakened and taken to the recovery room in stable condition. I was present and scrubbed through the entire procedure. Estimated Blood Loss 5 Drains No Packing No Pathology Yes (Endometrial curettings and shavings) Complications None Condition Stable Disposition PACU [facility] Billing Surgery - Charge Forward: Surgery Billing
[2025-03-13 16:30] VITALS: BP 126/79; PULSE 69
[2025-03-13 17:00] VITALS: BP 124/78; PULSE 68
== END 2025-03-13 17:10 | disposition home or self-care (01) ==
PROVIDERS: PCP Family Medicine; Visit Provider Obstetrics & Gynecology
PROC: 0U5B8ZZ Destruction of Endometrium, Via Natural or Artificial Opening Endoscopic (ICD-10-PCS; CPT 58563; principal; 2025-03-13 15:15)
DX: N92.1 Excessive and frequent menstruation with irregular cycle (principal); N84.0 Polyp of corpus uteri; E66.9 Obesity, unspecified; Z68.37 Body mass index [BMI] 37.0-37.9, adult
CPT/HCPCS: 58558; 88305; A9270; J2003; J2250; J2270; J2704; J7120